=== PATIENT | male | born 1970 | race Caucasian/White ===

== ENCOUNTER 2016-04-07 08:33 | Emergency (ER) | payer MEDICARE ==
[2016-04-07] MEDS ORDERED: Mag-Al Plus 1200 MG/1200 MG/120 MG/30 ML UDCUP ONE (09:01)
[2016-04-07] MEDS ORDERED: Pantoprazole 40 MG VIAL ONE (09:01)
[2016-04-07] MEDS ORDERED: Lidocaine Viscous Sol 2% 15 ml UD Cup ONE (09:01)
--- NOTE | 2016-04-07 09:16 | RAD ---
SINGLE VIEW OF THE CHEST: Indication: Chest pain. IMPRESSION: No acute cardiopulmonary abnormality. COMMENTS: No comparison available. Lungs are clear. No pleural effusion or pneumothorax is evident. Heart s ize is accentuated by exam technique. No acute osseous abnormality is evident. POS: TONEY
[2016-04-07] MEDS ORDERED: Nitroglycerin 0.4 MG TAB (25 Tab Bottle) ONE (09:19)
[2016-04-07] MEDS ORDERED: Ondansetron HCl/PF 4 MG/2 ML Vial ONE (09:19)
[2016-04-07 09:20] LABS: #Basophils 0.1 thou/uL (0.0-0.2); #Eosinphils 0.7 thou/uL (0.0-0.7); #Lymphocytes 2.1 thou/uL (1.20-3.40); #Monocytes 0.5 thou/uL (0.11-0.59); #Neutrophils 4.7 thou/uL (1.40-6.50); %Basophils 1.1 % (0.0-1.0); %Eosinophils 8.6 % (0.0-10.0); %Lymphocytes 25.7 % (21.0-51.0); %Monocytes 6.1 % (0.0-10.0); Hematocrit 40.1 % (42.0-52.0); Mean Platelet Volume 7.3 fL (7.4-10.4); Red Blood Cell (RBC) Count 4.58 mill/uL (4.70-6.10)
[2016-04-07] MEDS ORDERED: Morphine Sulfate 2 MG/ML SYRINGE ONE (09:34)
[2016-04-07 09:35] LABS: Troponin I Less than 0.010 ng/mL (< 0.028)
[2016-04-07 09:36] LABS: ALT (SGPT) 51 U/L (0-55); AST (SGOT) 41 U/L (5-34); Alkaline Phosphatase 98 U/L (40-150); Anion Gap 16 mmol/L (10-20); BUN (Urea Nitrogen) 9 mg/dL (8.9-20.6); Bilirubin, Total 0.3 mg/dL (0.2-1.2); Calc. Creatinine Clearance 0 mL/min (70-130); Calcium 8.7 mg/dL (7.8-10.44); Carbon Dioxide 22 mmol/L (22-29); Chloride 105 mmol/L (98-107); Estimated GFR-MDRD 84; Globulin 3.4 g/dL (2.4-3.5); Lipase 16 U/L (8-78); Protein, Total 7.2 g/dL (6.0-8.3)
--- NOTE | 2016-04-07 10:31 | PICIS ---
[facility] EMERGENCY RECORD TRIAGE (WedApr 07, 2016 08:42 EPIE) TRIAGE NOTES: Pt reports CP starting this morning. Pain radiates down left arm. Reports nausea. (WedApr 07, 2016 08:42 EPIE) PATIENT: NAME: Dom Chen, AGE: 46, GENDER: male, : Sat 1970, TIME OF GREET: WedApr 07, 2016 08:34, PREFERRED LANGUAGE: Rw[place]an, ETHNICITY: Not or , ECODE BILLING MAP: [facility], SSN: [id number], Zip Code: [address], KG WEIGHT: [phone], PHONE: , , , PERSON ID: [id number], PCP: JAIRO. (WedApr 07, 2016 08:42 EPIE) COMPLAINT: HIGH RISK COMPLAINT: CHEST PAIN. (WedApr 07, 2016 08:42 EPIE) ADMISSION: URGENCY: 2 Emergent, ADMISSION SOURCE: Home, TRANSPORT: CAR, BED: TRIAGE. (WedApr 07, 2016 08:42 EPIE) TRIAGE SCREENING: Patient denies suicidal ideation, Patient denies presence of domestic violence. (08:57 EPIE) TREATMENTS IN PROGRESS: Treatments given Prehospital: none. (08:57 EPIE) PROVIDERS: TRIAGE NURSE: Adri Stephens RN. (WedApr 07, 2016 08:42 EPIE) VITAL SIGNS: BP 149/69, Pulse 84, Resp 26, Pain 8, O2 Sat 97, on Room Air, Time 04/07/2016 08:41. (08:41 EPIE) KNOWN ALLERGIES Advair Diskus Beta-Blockers (Beta-Adrenergic Blocking Agts) butorphanol tartrate Chlortab-4 codeine sulfate fluconazole hydrochlorothiazide ketorolac Lactose Intolerance loratadine metFORMIN NSAIDS (Non-Steroidal Anti-Inflammatory Drug) spironolactone traMADol CURRENT MEDICATIONS No recorded medications VITAL SIGNS VITAL SIGNS: BP: 149/69, Pulse: 84, Resp: 26, Pain: 8, O2 sat: 97 on Room Air, Time: 04/07/2016 08:41. (08:41 EPIE) BP: 131/62, Pulse: 84, Resp: 26, Temp: 98.1 (Oral), Pain: 8, O2 sat: 100 on 2L Oxygen, Time: 04/07/2016 09:00. (09:00 EPIE) NURSING ASSESSMENT: CARDIOVASCULAR (09:15 EPIE) &a-1R&a+25V*p+0X*x9713G*c202B*c15G*c2P*p-0X&a-25V&a+1R Name: Dom Chen : 1970 6 MedRec: [id number] AcctNum: [id number] Prepared: WedApr 07, 2016 10:21 by Interface Page [address] [facility] EMERGENCY RECORD CONSTITUTIONAL: Patient arrives ambulatory, Unsteady gait, Assistance to cart, History obtained from patient, Patient appears, restless, uncomfortable, Patient cooperative, Patient alert, Oriented to person, place and time, Skin warm, Skin dry, Skin normal in color, Mucous membranes pink, Mucous membranes moist, Patient is well-groomed, Pt reports CP starting this morning. Pain radiates down left arm. Reports nausea. PAIN: crushing pain, diffuse chest, Onset of pain 04/07/2016 0600, on a scale 0-10 patient rates pain as 8. CARDIOVASCULAR: Cardiovascular assessment findings include heart rate normal, Heart sounds normal, S1, S2, Notes: Pt reports bradycardia today HR in the 30s earlier. RESPIRATORY/CHEST: Breath sounds clear, Respiratory assessment findings include respiratory effort, tachypneic, Respirations regular, Converses, in short phrases, Neck and chest exam findings include trachea midline, Chest expansion equal, Chest movement symmetrical, Associated with cough, dry. NURSING PROCEDURE: BEDSIDE RADIOLOGY PATIENT IDENTIFIER: Patient actively involved in identification process, Patient's identity verified by patient stating name, Patient's identity verified by hospital ID bracelet. (09:05 EPIE) BEDSIDE RADIOLOGY: Portable chest x-ray performed. (09:05 EPIE) Bedside radiology performed by SD, Portable chest x-ray performed. (09:08 KHER) NURSING PROCEDURE: COMMUNITY ORGANIZATION AIDE (08:57 EPIE) PATIENT IDENTIFIER: Patient actively involved in identification process, Patient's identity verified by patient stating name, Patient's identity verified by hospital ID bracelet. COMMUNITY ORGANIZATION AIDE: Patient placed on reproduction production manager, Patient placed on non-invasive blood pressure monitor, with disposable blood pressure cuff applied, Patient placed on continuous pulse oximetry, Adult/pediatric oxisensor applied. FOLLOW-UP: After procedure, alarms set and on, After procedure, patient tolerating monitoring. NURSING PROCEDURE: DISCHARGE NOTE (09:58 JPAR) DISCHARGE: Patient discharged to home, in a wheelchair, family driving, accompanied by //partner, Summary of Care printed/ provided, Patient requested and was provided an electronic copy of Discharge Instructions, Transition record given to patient, Discharge instructions given to patient, Simple or moderate discharge teaching performed, Above person(s) verbalized understanding of discharge instructions and follow-up care, Patient treated and evaluated by physician. BELONGINGS: Belongings and valuables with patient at time of &a-1R&a+25V*p+0X*b7637W*c202B*c15G*c2P*p-0X&a-25V&a+1R Name: Dom Chen : 1970 M46 MedRec: [id number] AcctNum: [id number] Prepared: WedApr 07, 2016 10:21 by Interface Page [address] [facility] EMERGENCY RECORD discharge include:, Belongings remain with patient, Valuables remain with patient. SAFETY: Side rails up, Cart/Stretcher in lowest position, Family at bedside, Call light within reach, Hospital ID band on. NURSING PROCEDURE: EKG CHART (08:42 EPIE) EK lead EKG performed on the left chest, done by Adri MCLEOD, first EKG, Notes: EKG at 0837. FOLLOW-UP: After procedure, EKG for interpretation given to Dr. Marques BAXTER. NURSING PROCEDURE: IV (08:57 EPIE) PATIENT IDENITIFIER: Patient actively involved in identification process, Patient's identity verified by patient stating name, Patient's identity verified by hospital ID bracelet. IV SITE 1: IV established, to the right antecubital, using a 20 gauge catheter, in one attempt, IV site prepped with chloroprep, Saline lock established, Flushed with normal saline (mls): 10, Labs drawn at time of placement, labeled in the presence of the patient and sent to lab, Notes: IV started by Alex MCLEOD. FOLLOW-UP SITE 1: After procedure, no drainage at IV site, After procedure, no swelling at IV site, After procedure, no redness at IV site. NURSING PROCEDURE: NURSE NOTES (09:50 EPIE) NURSES NOTES: Notes: Patient resting with family at bedside. RR even and unlabored. No new complaints at this time. ERMD talking with patient at this time. ORDER DETAILS Order Name: B type Natriuretic Peptide, Status: Active, Time: 08:55 04/07/2016, User: SAMANTHA, - Ordered for: MD Mohan Andrea, - Entered by: MD Mohan Andrea - [place] Apr 07, 2016 08:55, - Quantity: 1, Order Name: COMMUNITY ORGANIZATION AIDE ED, Status: Done, Time: 08:57 04/07/2016, User: MANDA, - Ordered for: MD Mohan Andrea, - Entered by: MD Mohan Andrea - [place] Apr 07, 2016 08:55, - Quantity: 1, Order Name: Cardiac Profile w/CKMB & Troponin - I, Status: Active, Time: 08:55 04/07/2016, User: SAMANTHA, - Ordered for: MD Mohan Andrea, - Entered by: MD Mohan Andrea - [place] Apr 07, 2016 08:55, - Quantity: 1, Order Name: CBC with Differential, Status: Active, Time: 08:55 04/07/2016, User: SAMANTHA, - Ordered for: MD Mohan Andrea, - Entered by: MD Mohan Andrea - [place] Apr 07, 2016 08:55, &a-1R&a+25V*p+0X*o5554G*c202B*c15G*c2P*p-0X&a-25V&a+1R Name: Dom Chen : 1970 M46 MedRec: [id number] AcctNum: [id number] Prepared: WedApr 07, 2016 10:21 by Interface Page [address] [facility] EMERGENCY RECORD - Quantity: 1, Order Name: Comprehensive Metabolic Panel, Status: Active, Time: 08:55 04/07/2016, User: SAMANTHA, - Ordered for: MD Mohan Andrea, - Entered by: MD Mohan Andrea - Tue Apr 07, 2016 08:55, - Quantity: 1, Order Name: D-Dimer (Quantitative), Status: Active, Time: 08:55 04/07/2016, User: SAMANTHA, - Ordered for: MD Mohan Andrea, - Entered by: MD Mohan Andrea - Tue Apr 07, 2016 08:55, - Quantity: 1, Order Name: EKG 12 Lead in Emergency Room, Status: Active, Time: 08:55 04/07/2016, User: SAMANTHA, - Ordered for: MD Mohan Andrea, - Entered by: MD Mohan Andrea - Tue Apr 07, 2016 08:55, - Quantity: 1, Order Name: Lipase, Status: Active, Time: 08:55 04/07/2016, User: SAMANTHA, - Ordered for: MD Mohan Andrea, - Entered by: MD Mohan Andrea - Tue Apr 07, 2016 08:55, - Quantity: 1, Order Name: SALINE LOCK, Status: Done, Time: 08:57 04/07/2016, User: MANDA, - Ordered for: MD Mohan Andrea, - Entered by: MD Mohan Andrea - Tue Apr 07, 2016 08:55, - Quantity: 1, Order Name: XR Chest 1 View Portable, Status: Active, Time: 08:55 04/07/2016, User: SAMANTHA, - Ordered for: MD Mohan Andrea, - Entered by: MD Mohan Andrea - Tue Apr 07, 2016 08:55, - Quantity: 1. MEDICATION ADMINISTRATION SUMMARY Drug Name: nitroglycerin sublingual, Dose Ordered: 1 tab(s), Route: Sublingual, Status: Canceled, Time: 09:26 04/07/2016, Drug Name: morphine intravenous, Dose Ordered: 6 mg, Route: IV Push, Status: Given, Time: 09:40 04/07/2016, Drug Name: nitroglycerin sublingual, Dose Ordered: 0.4 mg, Route: Sublingual, Status: Given, Time: 09:23 04/07/2016, Drug Name: Zofran intravenous, Dose Ordered: 4 mg, Route: IV Push, Status: Given, Time: 09:22 04/07/2016, Drug Name: GI COCKTAIL- GREEN, Dose Ordered: 40 mL, Route: Oral, Status: Held, Time: 09:11 04/07/2016, Drug Name: Protonix intravenous, Dose Ordered: 40 mg, Route: IV Push, Status: Given, Time: 09:11 04/07/2016, Detailed record available in Medication Service section. MEDICATION SERVICE GI COCKTAIL- GREEN: Order: GI COCKTAIL- GREEN - Dose: 40 mL : Oral &a-1R&a+25V*p+0X*r5943G*c202B*c15G*c2P*p-0X&a-25V&a+1R Name: Dom Chen : 1970 M46 MedRec: [id number] AcctNum: [id number] Prepared: WedApr 07, 2016 10:21 by Interface Page [address] [facility] EMERGENCY RECORD (phenobarbital/hyoscyamine sulfate/atropine sulfate/scopolamine hydrobromide) [10 mL] Lidocaine Viscous (lidocaine HCl) [10 mL] MAG-AL (magnesium hydroxide/aluminum hydroxide) [20 mL] Ordered by: Alexx Mohan MD Entered by: Alexx Mohan MD WedApr 07, 2016 08:56 , Acknowledged by: Adri Stephens RN WedApr 07, 2016 09:00, Held by: Adri Stephens RN WedApr 07, 2016 09:11 Reason: Patient refused:Pt report anxiety reaction with this medication. morphine intravenous: Order: morphine intravenous (morphine sulfate) - Dose: 6 mg : IV Push POTENTIAL ALLERGY REACTION: 'butorphanol tartrate [butorphanol/butorphanol tartrate]', 'codeine sulfate [codeine/codeine sulfate]', 'traMADol [tramadol/tramadol HCl]' - Not a true drug allergy, Reviewed with patient Ordered by: Alexx Mohan MD Entered by: Alexx Mohan MD WedApr 07, 2016 09:33 , Acknowledged by: Adri Stephens RN WedApr 07, 2016 09:33 Documented as given by: Alex Alonso RN WedApr 07, 2016 09:40 Patient, Medication, Dose, Route and Time verified prior to administration. Amount given: 6mg, IV SITE #1 IVP, initial medication, Slowly, Awake and alert- acceptable, Catheter placement confirmed via flush prior to administration, IV site without signs or symptoms of infiltration during medication administration, No swelling during administration, No drainage during administration, IV flushed after administration, Correct patient, time, route, dose and medication confirmed prior to administration, Patient advised of actions and side-effects prior to administration, Allergies confirmed and medications reviewed prior to administration, Administered by Adri MCLEOD. nitroglycerin sublingual: Order: nitroglycerin sublingual (nitroglycerin) - Dose: 0.4 mg : Sublingual Ordered by: Alexx Mohan MD Entered by: Alexx Mohan MD WedApr 07, 2016 09:25 Documented as given by: Alex Alonso RN WedApr 07, 2016 09:23 Patient, Medication, Dose, Route and Time verified prior to administration. Correct patient, time, route, dose and medication confirmed prior to administration, Patient advised of actions and side-effects prior to administration, Allergies confirmed and medications reviewed prior to administration, Patient in position of comfort, Side rails up, Cart in lowest position, Family at bedside, Call light in reach. Protonix intravenous: Order: Protonix intravenous (pantoprazole sodium) - Dose: 40 mg : IV Push Ordered by: Alexx Mohan MD Entered by: Alexx Mohan MD WedApr 07, 2016 08:56 , Acknowledged by: Adri Stephens RN WedApr 07, 2016 09:00 Documented as given by: Adri Stephens RN WedApr 07, 2016 09:11 Patient, Medication, Dose, Route and Time verified prior to administration. &a-1R&a+25V*p+0X*c5146E*c202B*c15G*c2P*p-0X&a-25V&a+1R Name: Dom Chen : 1970 M46 MedRec: [id number] AcctNum: [id number] Prepared: WedApr 07, 2016 10:21 by Interface Page [address] [facility] EMERGENCY RECORD Amount given: 40mg, IV SITE #1 IVP, initial medication, Slowly, Catheter placement confirmed via flush prior to administration, IV site without signs or symptoms of infiltration during medication administration, No swelling during administration, No drainage during administration, IV flushed after administration, Correct patient, time, route, dose and medication confirmed prior to administration, Patient advised of actions and side-effects prior to administration, Allergies confirmed and medications reviewed prior to administration. Zofran intravenous: Order: Zofran intravenous (ondansetron HCl) - Dose: 4 mg : IV Push Schedule: Now Ordered by: Alexx Mohan MD Entered by: Alex Alonso RN [place] Apr 07, 2016 09:23 Documented as given by: Alex Alonso RN [place] Apr 07, 2016 09:22 Patient, Medication, Dose, Route and Time verified prior to administration. IV SITE #1 IVP, initial medication, Slowly, Awake and alert- acceptable, Connections checked prior to administration, Line traced prior to administration, Catheter placement confirmed via flush prior to administration, IV site without signs or symptoms of infiltration during medication administration, No swelling during administration, No drainage during administration, IV flushed after administration, Correct patient, time, route, dose and medication confirmed prior to administration, Patient advised of actions and side-effects prior to administration, Allergies confirmed and medications reviewed prior to administration, Patient in position of comfort, Side rails up, Cart in lowest position, Family at bedside, Call light in reach, Co-signed by: Alexx Mohan MD WedApr 07, 2016 09:26. (CANCELED) nitroglycerin sublingual: Order: nitroglycerin sublingual (nitroglycerin) - Dose: 1 tab(s) : Sublingual Schedule: Now Ordered by: Alexx Mohan MD Entered by: Alex Alonso RN [place] Apr 07, 2016 09:26 Canceled by: Alex Alonso RN. WedApr 07, 2016 09:26 Cancel reason: Duplicate order. HPI CHEST PAIN (09:00 AGRE) CHIEF COMPLAINT: Patient presents for evaluation of chest pain. HISTORIAN: History provided by patient, CHEST PAIN WOKE HIM FROM SLEEP AROUND 2 AM AND HAS BEEN CONTINOUS SINCE THEN. HX OF CHRONIC CHEST PAIN FOR 4 YEARS WHICH HAS BEEN DX A GI PROBLEM. SAYS THIS IS THE SAME PAIN THAT HE ALWAY HAS BUT THIS MORNING NOTED HIS PULSE WAS IN THE 30'S A COUPLE OF TIMES OTHERWISE THE PAIN IS NO DIFFERENT THAN USUAL. NO CHEST RECENT EXERTIONAL CHEST PAIN OR NEW SOB ON EXERTION. HAS CHRONIC SOB AND SLEEP APNEA AND IS ON HOME OXYGEN FOR HIS CHRONIC BREATHING PROBLEMS. SAYS HAD LAST CARDIAC WORK UP ONE YEAR AGO AND ALL WAS WNL. SAYS IS ON A PAIN MANAGEMENT PROGRAM AND TAKES PERCODAN FOR HIS PAIN AT HOME BUT IT DID NOT WORK FOR THE PAIN YESTERDAY SO DID NOT TRY IT THIS MORNING. SAYS WHEN GOES TO ED &a-1R&a+25V*p+0X*s8767Z*c202B*c15G*c2P*p-0X&a-25V&a+1R Name: Dom Chen : 1970 M46 MedRec: [id number] AcctNum: [id number] Prepared: WedApr 07, 2016 10:21 by Interface Page [address] [facility] EMERGENCY RECORD THEY USUALLY GIVE HIM MORPHINE OR DILAUDID. SAYS THE PAIN IS A TIGHTNESS THAT SHOOTS ACROSS HIS CHEST AND DOWN HIS LEFT ARM. NO SWEATING. HAS NAUSEA. LOCATION: No localizing symptoms. QUALITY: Pain is dull in nature, described as a sensation of fullness, described as pressure-like. SEVERITY: Maximum severity of symptoms severe, Currently symptoms are severe. TIME COURSE: Gradual onset of symptoms, There has been no change in the patient's symptoms over time. ASSOCIATED WITH: No associated chills, No associated cough, No associated diaphoresis, No associated fever, No associated trauma, No associated upper respiratory infection, No associated vomiting. EXACERBATED BY: Patient's condition exacerbated by nothing. RELIEVED BY: Patient's condition relieved by nothing. HEART SCORE: Patients history is Slightly Suspicious (0), Patients ECG has Non specific repolarisation disturbance/LBTB/PM (1), Patients age is greater than 45 and less than 65 (1), Patient has equal to or greater than 3 risk factors or history of atherosclerotic disease (2). WELLS CRITERIA FOR PE: No clinical signs and symptoms of a DVT (0), Patient does not have, or is likely to not have, a primary diagnosis of PE (0), Patient's heart rate is less than 100 (0), Patient has no history of immobilization within 3 days, nor any surgical history within the past 4 weeks (0), Patient has not had an objectively diagnosed PE or DVT previously (0), Patient does not have hemoptysis (0), Patient has not had treatment for malignancy within the last 6 months, nor palliative (0). ROS (09:06 [facility]) CONSTITUTIONAL: Historian denies chills, denies fever, denies weakness. EYES: Historian denies eye redness, denies vision changes. ENT: Historian denies sore throat, denies stridor. CARDIOVASCULAR: Historian reports chest pain, denies diaphoresis, denies edema, denies exercise intolerance, denies syncope. RESPIRATORY: Historian denies cough, reports shortness of breath, denies sputum, denies stridor, denies wheezing. GI: Historian denies abdominal pain, denies nausea, denies vomiting. MUSCULOSKELETAL: Historian denies back pain, denies neck pain. SKIN: Historian denies skin changes, denies skin lesions. NEUROLOGIC: Historian denies confusion, denies dizziness, denies focal weakness, denies headache. HEMO/LYMPHATIC: Normal hematologic/lymphatic system review, Historian denies petechiae. PSYCHIATRIC: Negative psychiatric review of systems, Historian denies anxiety. &a-1R&a+25V*p+0X*f0587C*c202B*c15G*c2P*p-0X&a-25V&a+1R Name: Dom Chen : 1970 M46 MedRec: [id number] AcctNum: [id number] Prepared: WedApr 07, 2016 10:21 by Interface Page [address] [facility] EMERGENCY RECORD PAST MEDICAL HISTORY (08:57 EPIE) MEDICAL HISTORY: Notes: Colon Poylps with intestinal damage, Past medical history includes history of diabetes, history of hypertension, pulmonary disease. asthma. MALE SURGICAL HISTORY: Colon polyp removal, Surgical history of cholecystectomy, Surgical history of tonsillectomy. PSYCHIATRIC HISTORY: No previous psychiatric history. SOCIAL HISTORY: Patient denies alcohol use, Patient denies drug use, Patient has no smoking history. PHYSICAL EXAM (09:06 [facility]) CONSTITUTIONAL: Blood pressure, hypertensive, Respiratory rate, increased, Patient appears, in moderate pain distress, OBSEITY, Vital signs reviewed, Patient afebrile, Patient alert and oriented to person, place and time, NURSES NOTES REVIEWED. HEAD: Head exam included findings of head atraumatic, normocephalic. EYES: Eye exam included findings of eyelids normal to inspection, Extraocular muscles intact, Conjunctiva normal, Sclera normal. ENT: Ear exam normal, Nose exam normal, Mouth exam normal. NECK: Neck exam normal, Neck exam included findings of normal range of motion, no meningeal signs, no cervical adenopathy. RESPIRATORY CHEST: Breath sounds clear, No wheezing, No rales, No rhonchi, Breath sounds not diminished, Chest exam included findings of chest movement symmetrical, Chest expansion equal, no tenderness, no crepitus, TACHYPNEA. CARDIOVASCULAR: Cardiovascular exam included findings of heart rate regular rate and rhythm, Heart sounds normal, normal S1, normal S2, no murmurs, no rub, no gallop. ABDOMEN MALE: Abdominal exam normal, Abdominal exam included findings of abdomen nontender, Bowel sounds normal, Liver normal, Spleen normal, no distension, no mass. BACK: Back exam normal, Back exam included findings of normal inspection, range of motion normal. UPPER EXTREMITY: Upper extremity exam included findings of inspection normal, Range of motion normal. LOWER EXTREMITY: Lower extremity exam included findings of inspection normal, Range of motion normal, Motor strength normal, Romario's negative, no edema, no calf tenderness, no palpable cords. NEURO: Neuro exam normal, Neuro exam findings include patient oriented to person, place and time, Speech normal, Gait normal, Memory normal, Cranial nerves intact, no focal motor deficits. SKIN: Skin exam normal, Skin exam included findings of skin warm, dry, and normal in color. LYMPHATIC: Lymphatic exam normal, Lymphatic exam included findings of cervical nodes normal. PSYCHIATRIC: Psychiatric exam normal, Normal affect. &a-1R&a+25V*p+0X*f2542Y*c202B*c15G*c2P*p-0X&a-25V&a+1R Name: Dom Chen : 1970 M46 MedRec: [id number] AcctNum: [id number] Prepared: WedApr 07, 2016 10:21 by Interface Page [address] [facility] EMERGENCY RECORD LAB INTERPRETATION (09:35 AGRE) INTERPRETATION: CBC abnormal, Hemoglobin decreased, Hematocrit decreased, Chemistry abnormal, Glucose elevated, Cardiac enzymes normal, D-dimer. EVENTS TRANSFER: Triage to Emergency Triage. (WedApr 07, 2016 08:42 EPIE) Emergency Triage to Emergency Room -04. (08:47 EPIE) Removed from Emergency Emergency Room -04. (10:01 JPAR) RADIOLOGYINTERPRETATION (09:36 AGRE) STAMPING MACHINE OPERATOR: Preliminary review of x-rays by, Radiologist, COMMENTS: No comparison available. Lungs are clear. No pleural effusion or pneumothorax is evident. Heart size is accentuated by exam technique. No acute osseous abnormality is evident. EKG INTERPRETATION (08:57 AGRE) 12 LEAD EKG INTERPRETATION: 12 lead EKG interpreted by Emergency Department Physician at time of study, 12 lead EKG shows normal sinus rhythm, Rate (beats per minute): 88, Conduction normal, [place] normal, Other findings include:, NON-SPECIFIC ST AND T CHANGES. O2SAT INTERPRETATION (08:59 AGRE) O2SAT: Continuous pulse oximetry, Oxygen saturation 97%, on 2L, Oxygen saturation interpretation: Normal, Intervention required: Oxygen administration, PATIENT ON HOME OXYGEN. DOCTOR NOTES RE-EVALUATION: Routine re-evaluation, after administration of analgesics, Routine re-evaluation, after administration of antiemetics, The patient's condition is unchanged. (09:34 AGRE) Routine re-evaluation, after administration of analgesics, The patient's condition has improved. (10:07 AGRE) TEXT: PATIENT REPORTS NO CHANGES WITH PROTONIX AND NTG MADE THE PAIN MUCH WORST. (09:34 AGRE) VS STABLE AND PAIN MUCH BETTER AFTER MORPHINE. HE IS NO LONGER RESTLESS WITH PAIN AND IS SITTING CHATTING WITH HIS BOTTLE CLEANER LOOKING VERY COMFORTABLE. DISCUSSED WITH HIM FINDINGS ON EXAM, RESULTS OF HIS ED TEST, CONTINUING HIS CURRENT MEDICATIONS, NEED FOR FOLLOW UP WITH HIS PCP. HE EXPRESSED UNDERSTANDING AND AGREEMENT. (10:07 AGRE) PATIENT STATUS: Patient has improved since arrival to emergency department. (10:07 AGRE) PATIENT PLAN: The patient will be discharged. (10:07 AGRE) DATA REVIEWED: Lab data reviewed, Xray data reviewed, Reviewed EKG, Discussed with family. (10:07 AGRE) &a-1R&a+25V*p+0X*s7102C*c202B*c15G*c2P*p-0X&a-25V&a+1R Name: Dom Chen : 1970 M46 MedRec: [id number] AcctNum: [id number] Prepared: WedApr 07, 2016 10:21 by Interface Page [address] [facility] EMERGENCY RECORD PROBLEM LIST No recorded problems DIAGNOSIS (09:43 AGRE) FINAL: PRIMARY: CHEST PAIN, ADDITIONAL: UNCONTROLLED TYPE 2 DIABETES. DISPOSITION PATIENT: Disposition Type: Discharge, Disposition: *Discharge Home, Condition: Improved. (09:38 AGRE) Patient left the department. (10:01 JPAR) INSTRUCTION (09:44 AGRE) DISCHARGE: CHEST PAIN, NONCARDIAC, HYPERGLYCEMIA DIABETIC. FOLLOWUP: [facility], /[facility] [facility] [address], . SPECIAL: CONTINUE YOUR CURRENT MEDICATIONS PRESCRIBED BY YOUR PHYSICIAN. FOLLOW UP WITH A PRIMARY CARE PHYSICIAN FOR RECHECK TOMORROW. PRESCRIPTION No recorded prescriptions IMAGING *SUPPLY CHARGE SHEET: Image captured from scanner. (09:59 JPAR) *DISCHARGE INSTRUCTIONS RECEIPT: Image captured from scanner. (09:59 JPAR) *EKG: Image captured from scanner. (10:00 JPAR) ADMIN DIGITAL SIGNATURE: SHANI Alonso, Alex. (10:01 JPAR) MD Marques, Alexx. (10:09 AGRE) [place]aranjo: AGRE=MD Marques, Alexx HOLMAN=SHANI Stephens, Adri JPAR=SHANI Alonso, Alex BANEGAS=DEBRA Rodrigues Kayce &a-1R&a+25V*p+0X*j1834N*c202B*c15G*c2P*p-0X&a-25V&a+1R Name: Dom Chen Renae : 1970 M46 MedRec: [id number] AcctNum: [id number] Prepared: Ave Apr 07, 2016 10:21 by Interface Page 10 of 10 pMD MTDD
== END 2016-04-07 09:55 | disposition home or self-care (01) ==
LOC: NAV ERS 08:33
DX: R07.9 Chest pain, unspecified (principal); E11.9 Type 2 diabetes mellitus without complications; J45.909 Unspecified asthma, uncomplicated; I10 Essential (primary) hypertension
CPT/HCPCS: 36415; 71010; 80053; 82553; 83690; 83880; 84484; 85025; 85379; 93005; 96374; 96375; C9113; J2270; J2405